=== PATIENT | female | born 1980 | race Caucasian/White ===

== ENCOUNTER 2019-05-15 15:20 | Emergency (ER) | payer OTHER ==
--- NOTE | 2019-05-15 16:22 | RAD REPORT ---
EXAM DESCRIPTION: RAD - Ankle Left 3 View -05/15/2019 4:08 pm CLINICAL HISTORY: Left ankle pain FINDINGS: No acute fracture or dislocation is seen. Lateral soft tissue swelling. Plate and screws affix old fibular fracture
--- NOTE | 2019-05-15 16:24 | RAD REPORT ---
EXAM DESCRIPTION: RAD - Knee Right 3 View - 05/15/2019 4:08 pm CLINICAL HISTORY: Right knee pain FINDINGS: No fracture or dislocation is seen. Mild medial joint space narrowing
--- NOTE | 2019-05-15 16:41 | EDPHYS ---
Physician Documentation [facility] Name: Milvia Joseph Age: 38 yrs Sex: Female : 1980 Arrival Date: 05/15/2019 Time: 15:23 Bed 19 Private MD: BLANKA Physician Barry Carranza HPI: 05/15 15:50 This 38 yrs old Female presents to ER via Ambulatory with complaints of cp Ankle/Leg Pain. 15:50 The patient presents with an injury, pain. The complaints affect the left lateral cp ankle, medial aspect of right knee and right knee. Context: resulted from the patient falling, a mis-step, the patient can fully bear weight, the patient is able to ambulate, with mild difficulty, Problem is a result from a previous injury: Yes. left ankle fracture that required surgery with hardware placement. Onset: The symptoms/episode began/occurred last week. Associated signs and symptoms: Pertinent positives: swelling, weakness, Pertinent negatives calf tenderness, numbness. Patient reports she went to hospital in [facility] after fall and had xrays taken. 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 - Coronavirus screen:: The patient has NOT traveled to [place] in the past 14 days. - Social history:: Smoking status: Patient reports the use of cigarette tobacco products, smokes one-half pack cigarettes per day. - Ebola Screening: : Patient denies travel to an Ebola-affected area in the 21 days before illness onset. ROS: 15:55 MS/extremity: Positive for pain, of the right knee and left ankle, Negative for cp decreased range of motion, deformity, paresthesias. 15:55 Constitutional: Negative for body aches, chills, fever. cp 15:55 Respiratory: Negative for cough, shortness of breath. 15:55 Abdomen/GI: Negative for abdominal pain. 15:55 Neuro: Negative for headache. 15:55 All other systems are negative. Exam: 16:05 Constitutional: The patient appears in no acute distress, alert, awake, non-toxic, well cp developed, well nourished. 16:05 Head/Face: Normocephalic, atraumatic. cp 16:05 Cardiovascular: Rate: normal. 16:05 Respiratory: the patient does not display signs of respiratory distress, Respirations: normal. 16:05 Musculoskeletal/extremity: Pulses: noted to be 2+ in the right dorsalis pedis artery and left dorsalis pedis artery, Sensation intact. Joints: All joints are normal except the right knee displays painful range of motion, tenderness, the left ankle displays painful range of motion, swelling, tenderness, Weight bearing: able to fully bear weight. 16:05 Skin: cellulitis, is not appreciated, no rash present. Vital Signs: 15:31 BP 127 / 79; Pulse 86; Resp 18; Temp 97.7; Pulse Ox 98% on R/A; Weight 73.03 kg (R); aj1 Height 5 ft. 5 in. (165.10 cm) (R); Pain 7/10; 15:31 Body Mass Index 26.79 (73.03 kg, 165.10 cm) aj1 Procedures: 17:00 Splinting: Splint applied to left ankle using Air Cast, applied by nurse. Examined by cp me, post splint application: neurovascular intact, Patient tolerated well. MDM: 15:34 Patient medically screened. cp 16:40 Data reviewed: vital signs, nurses notes, radiologic studies, plain films. cp 16:40 Differential diagnosis: dislocation, closed fracture, sprain, strain. Test cp interpretation: by ED physician or midlevel provider: plain radiologic studies, xrays of left ankle negative for fracture and xrays of right knee negative for fracture. Counseling: I had a detailed discussion with the patient and/or guardian regarding: the historical points, exam findings, and any diagnostic results supporting the discharge/admit diagnosis, radiology results, the need for outpatient follow up, a orthopedic surgeon, to return to the emergency department if symptoms worsen or persist or if there are any questions or concerns that arise at home. 05/15 15:45 Order name: XRAY Knee RIGHT 3 view cp 05/15 15:45 Order name: XRAY Ankle LEFT 3 view cp 05/15 16:28 Order name: RAD EDMS 05/15 16:28 Order name: RAD EDMS 05/15 16:39 Order name: Aircast Ankle Splint; Complete Time: 18:19 cp Administered Medications: No medications were administered Disposition: 17:05 Chart complete. cp Disposition: 05/15/19 16:40 Discharged to Home. Impression: Pain in left ankle and joints of left foot, Pain in right knee. - Condition is Stable. - Discharge Instructions: Elastic Bandage and RICE, Knee Pain, Ankle Pain. - Prescriptions for Diclofenac Sodium 75 mg Oral Tablet, Delayed Release (E.C.) - take 1 tablet by ORAL route 2 times per day As needed; 20 tablet. - Medication Reconciliation Form, Thank You Letter, Antibiotic Education, Prescription Opioid Use form. - Follow up: David Snyder MD; When: 1 week; Reason: Recheck today's complaints. - Problem is new. - Symptoms have improved. Addendum: 05/18/2019 07:54 Co-signature as Attending Physician, Barry Carranza MD I agree with the assessment and c hernandez plan of care. Signatures: Dispatcher [employer] [facility] Domi Cullen RN RN aj1 Barry Carranza MD MD cha Page, Corey, PA PA Kala Garcia RN RN Corrections: (The following items were deleted from the chart) 05/15 17:03 16:40 05/15/2019 16:40 Discharged to Home. Impression: Pain in left ankle and joints of ah left foot; Pain in right knee. Condition is Stable. Forms are Medication Reconciliation Form, Thank You Letter, Antibiotic Education, Prescription Opioid Use. Follow up: Dr. David Snyder; When: 1 week; Reason: Recheck today's complaints. Problem is new. Symptoms have improved. cp
--- NOTE | 2019-05-15 16:41 | ER ---
Nurse's Notes [facility] Name: Milvia Joseph Age: 38 yrs Sex: Female : 1980 Arrival Date: 05/15/2019 Time: 15:23 Bed 19 Private MD: Diagnosis: Pain in left ankle and joints of left foot;Pain in right knee Presentation: 05/15 15:25 Presenting complaint: Patient states: "I had surgery on my left ankle, I rolled both of aj1 them a year ago, and I ended up having to go in for surgery a week later, they had to put a plate and 7 screws in it. I usually wear a brace on the right one because I roll it all the time. On the I rolled my left ankle and I went to the hospital at [place] and I sprained my knee too and then I did it again a couple days ago and it hasn't gotten any better." Patient reports pain to left ankle and right knee. Transition of care: patient was not received from another setting of care. Onset of symptoms was 2019. Risk Assessment: Do you want to hurt yourself or someone else? Patient reports no desire to harm self or others. Initial Sepsis Screen: Does the patient meet any 2 criteria? No. Patient's initial sepsis screen is negative. Does the patient have a suspected source of infection? No. Patient's initial sepsis screen is negative. Care prior to arrival: None. 15:25 Method Of Arrival: Ambulatory aj 15:25 Acuity: TIMOTHY 4 aj1 Triage Assessment: 15:31 General: Appears in no apparent distress. uncomfortable, Behavior is calm, cooperative, aj1 appropriate for age. Pain: Complains of pain in right knee and left lateral ankle. Neuro: Level of Consciousness is awake, alert, obeys commands. Cardiovascular: Patient's skin is warm and dry. Respiratory: Airway is patent Respiratory effort is even, unlabored, Respiratory pattern is regular, symmetrical. 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 - Coronavirus screen:: The patient has NOT traveled to [place] in the past 14 days. - Social history:: Smoking status: Patient reports the use of cigarette tobacco products, smokes one-half pack cigarettes per day. - Ebola Screening: : Patient denies travel to an Ebola-affected area in the 21 days before illness onset. Screenin:50 Abuse screen: Denies threats or abuse. Denies injuries from another. Nutritional sv screening: No deficits noted. Tuberculosis screening: No symptoms or risk factors identified. Fall Risk None identified. Assessment: 15:51 General: Appears in no apparent distress. Behavior is calm, cooperative. Pain: ah Complains of pain in left lateral ankle and lateral aspect of left foot and right knee Pain does not radiate. Pain currently is 6 out of 10 on a pain scale. Quality of pain is described as throbbing, Pain began 04/28 Is intermittent, Alleviated by rest, cold application, Aggravated by repositioning, weight bearing. Neuro: Level of Consciousness is awake, alert, Oriented to person, place, time, situation. Cardiovascular: Heart tones S1 S2 Capillary refill < 3 seconds. Respiratory: Airway is patent Respiratory effort is even, unlabored, Respiratory pattern is regular. GI: Abdomen is non-distended, Bowel sounds present X 4 quads. : No signs and/or symptoms were reported regarding the genitourinary system. EENT: No signs and/or symptoms were reported regarding the EENT system. Derm: Skin is intact, is healthy with good turgor. Musculoskeletal: Reports pain in left ankle and right knee. Injury Description: Pt states that she turned her L ankle and her right knee gave out on 04/28. 16:55 Reassessment: Patient appears in no apparent distress at this time. Patient and/or ah family updated on plan of care and expected duration. Pain level reassessed. Patient is alert, oriented x 3, equal unlabored respirations, skin warm/dry/pink. Patient states feeling better. Vital Signs: 15:31 BP 127 / 79; Pulse 86; Resp 18; Temp 97.7; Pulse Ox 98% on R/A; Weight 73.03 kg (R); aj1 Height 5 ft. 5 in. (165.10 cm) (R); Pain 7/10; 15:31 Body Mass Index 26.79 (73.03 kg, 165.10 cm) aj1 ED Course: 15:23 Patient arrived in ED. rg4 15:29 Triage completed. aj1 15:31 Arm band placed on Patient placed in an exam room. aj1 15:33 Barry Fragoso PA is PHCP. cp 15:33 Barry Carranza MD is Attending Physician. cp 15:40 Kala Garcia, RN is Primary Nurse. 15:50 Patient has correct armband on for positive identification. Placed in gown. Bed in low sv position. Call light in reach. 15:59 XRAY Ankle LEFT 3 view Sent. sv 15:59 XRAY Knee RIGHT 3 view Sent. sv 16:00 X-ray(s) taken. 16:21 Awaiting radiology results. sv 16:39 David Snyder MD is Referral Physician. cp 16:55 No provider procedures requiring assistance completed. Patient did not have IV access ah during this emergency room visit. 16:59 Air stirrup applied to left ankle. Administered Medications: No medications were administered Outcome: 16:40 Discharge ordered by MD. cp 16:55 Discharged to home ambulatory. 16:55 Condition: good 16:55 Discharge instructions given to patient, family, Instructed on discharge instructions, follow up and referral plans. Demonstrated understanding of instructions, follow-up care, medications, Prescriptions given X 1. 17:03 Patient left the ED. Signatures: Domi Cullen RN RN aj1 Makenna Chairez RN RN Barry Fragoso PA PA cp Garcia, Rubi rg4 Kala Garcia RN RN
== END 2019-05-15 17:03 | disposition home or self-care (01) ==
LOC: ER 15:20
DX: M25.572 Pain in left ankle and joints of left foot (principal); M25.561 Pain in right knee; F41.8 Other specified anxiety disorders; I10 Essential (primary) hypertension
CPT/HCPCS: 99283

== ENCOUNTER 2019-06-05 10:30 | Emergency (ER) | payer BC, OTHER ==
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
[2019-06-05] MEDS ORDERED: IPRATROPIUM BROM 0.5MG/2.5ML ONE (11:23)
[2019-06-05] MEDS ORDERED: HYDROCODONE/CHLORPHEN 5 ML/OSYR ONE (11:23)
[2019-06-05] MEDS ORDERED: LEVALBUTEROL 1.25 MG/3 ML NEB ONE (11:23)
[2019-06-05] MEDS ORDERED: AZITHROMYCIN 250 MG TAB ONE (11:23)
[2019-06-05] MEDS ORDERED: dexAMETHasone 4 MG TAB ONE (11:24)
--- NOTE | 2019-06-05 11:49 | RAD REPORT ---
EXAM DESCRIPTION: RAD - Chest Single View - 06/05/2019 11:31 am CLINICAL HISTORY: COUGH Chest pain. COMPARISON: No comparisons FINDINGS: Portable technique limits examination quality. The lungs are grossly clear. The heart is normal in size. No displaced fractures. IMPRESSION: No acute intrathoracic process suspected.
--- NOTE | 2019-06-05 11:50 | EDPHYS ---
Physician Documentation [facility] Name: Milvia Joseph Age: 39 yrs Sex: Female : 1980 Arrival Date: 06/05/2019 Time: 10:30 Bed 16 Private MD: ED Physician Barry Carranza HPI: 06/04 11:12 This 39 yrs old Female presents to ER via Ambulatory with complaints of isabel Cough, Fever, Sinus Congestion. 11:12 The patient or guardian reports airway noise, cough, difficulty breathing. Onset: The isabel symptoms/episode began/occurred 3 day(s) ago. Severity of symptoms: At their worst the symptoms were mild, in the emergency department the symptoms are unchanged. Modifying factors: The symptoms are alleviated by nothing, the symptoms are aggravated by nothing. The patient has not experienced similar symptoms in the past. Historical: - Allergies: 10:41 No Known Allergies; aa5 - Home Meds: 10:41 Metoprolol Tartrate Oral [Active]; Lisinopril Oral [Active]; Klonopin Oral [Active]; aa5 Lexapro Oral [Active]; - PMHx: 10:41 Anxiety; Depression; Hypertension; aa5 - PSHx: 10:41 D \T\ C; Tubal ligation; Fibula; aa5 - Immunization history:: Flu vaccine is not up to date. - Social history:: Smoking status: Patient reports the use of cigarette tobacco products, smokes one pack cigarettes per day. - Family history:: not pertinent. ROS: 11:12 Constitutional: Negative for fever, chills, and weight loss, Eyes: Negative for injury, isabel pain, redness, and discharge, ENT: Negative for injury, pain, and discharge, Neck: Negative for injury, pain, and swelling, Cardiovascular: Negative for chest pain, palpitations, and edema, Abdomen/GI: Negative for abdominal pain, nausea, vomiting, diarrhea, and constipation, Back: Negative for injury and pain, : Negative for injury, bleeding, discharge, and swelling, MS/Extremity: Negative for injury and deformity, Skin: Negative for injury, rash, and discoloration, Neuro: Negative for headache, weakness, numbness, tingling, and seizure, Psych: Negative for depression, anxiety, suicide ideation, homicidal ideation, and hallucinations, Allergy/Immunology: Negative for hives, rash, and allergies, Endocrine: Negative for neck swelling, polydipsia, polyuria, polyphagia, and marked weight changes, Hematologic/Lymphatic: Negative for swollen nodes, abnormal bleeding, and unusual bruising. 11:12 Respiratory: Positive for cough, shortness of breath, at rest. Exam: 11:12 Constitutional: This is a well developed, well nourished patient who is awake, alert, isabel and in no acute distress. Head/Face: Normocephalic, atraumatic. Eyes: Pupils equal round and reactive to light, extra-ocular motions intact. Lids and lashes normal. Conjunctiva and sclera are non-icteric and not injected. Cornea within normal limits. Periorbital areas with no swelling, redness, or edema. ENT: Nares patent. No nasal discharge, no septal abnormalities noted. Tympanic membranes are normal and external auditory canals are clear. Oropharynx with no redness, swelling, or masses, exudates, or evidence of obstruction, uvula midline. Mucous membranes moist. Neck: Trachea midline, no thyromegaly or masses palpated, and no cervical lymphadenopathy. Supple, full range of motion without nuchal rigidity, or vertebral point tenderness. No Meningismus. Chest/axilla: Normal chest wall appearance and motion. Nontender with no deformity. No lesions are appreciated. Cardiovascular: Regular rate and rhythm with a normal S1 and S2. No gallops, murmurs, or rubs. Normal PMI, no JVD. No pulse deficits. Abdomen/GI: Soft, non-tender, with normal bowel sounds. No distension or tympany. No guarding or rebound. No evidence of tenderness throughout. Back: No spinal tenderness. No costovertebral tenderness. Full range of motion. Skin: Warm, dry with normal turgor. Normal color with no rashes, no lesions, and no evidence of cellulitis. MS/ Extremity: Pulses equal, no cyanosis. Neurovascular intact. Full, normal range of motion. Neuro: Awake and alert, GCS 15, oriented to person, place, time, and situation. Cranial nerves II-XII grossly intact. Motor strength 5/5 in all extremities. Sensory grossly intact. Cerebellar exam normal. Normal gait. Psych: Awake, alert, with orientation to person, place and time. Behavior, mood, and affect are within normal limits. 11:12 Respiratory: the patient does not display signs of respiratory distress, Respirations: normal, no acute changes, Breath sounds: decreased breath sounds, rhonchi, that are mild, are scattered, Respiratory rate: 18 11:49 Musculoskeletal/extremity: DVT Exam: No signs of deep vein thrombosis. no pain, no isabel swelling, no tenderness, negative Homans' sign noted on exam, no appreciated bluish discoloration, no erythema, no increased warmth. Vital Signs: 10:31 BP 127 / 81; Pulse 60; Resp 18 S; Temp 98.1(O); Pulse Ox 98% on R/A; Weight 73.03 kg aa5 (R); Height 5 ft. 5 in. (165.10 cm) (R); Pain 0/10; 11:46 BP 134 / 81; Pulse 49; Resp 16; Pulse Ox 100% ; bp 12:22 BP 137 / 79; Pulse 55; Resp 16; Temp 98; Pulse Ox 100% ; bp 10:31 Body Mass Index 26.79 (73.03 kg, 165.10 cm) aa5 MDM: 10:46 Patient medically screened. [facility] 11:13 Data reviewed: vital signs, nurses notes, lab test result(s), Flu: radiologic studies, [facility] plain films. 06/04 10:47 Order name: Influenza Screen (a \T\ B) [facility] 06/04 12:19 Order name: Influenza Screen (A EDMS 06/04 10:47 Order name: Chest Single View XRAY [facility] 06/04 11:50 Order name: RAD; Complete Time: 12:03 EDVA Administered Medications: 11:20 Drug: Zithromax 500 mg Route: PO; bp 12:00 Follow up: Response: No adverse reaction bp 11:20 Drug: Decadron 4 mg Route: PO; bp 12:00 Follow up: Response: No adverse reaction bp 11:20 Drug: Xopenex 1.25 mg Route: Inhalation; bp 11:20 Drug: AtroVENT Aerosol 0.5 mg Route: Inhalation; bp 11:20 Drug: Tussionex Pennkinetic ER 5 ml Route: PO; bp 12:00 Follow up: Response: Marked relief of symptoms bp 12:00 Drug: Rocephin (cefTRIAXone) 1 grams Route: IM; Site: left gluteus; bp 12:01 Follow up: Response: No adverse reaction bp Disposition: 06/05/19 11:48 Discharged to Home. Impression: Cough, Bronchitis, not specified as acute or chronic, Tobacco abuse counseling, Tobacco use. - Condition is Stable. - Discharge Instructions: Acute Bronchitis, Adult, Upper Respiratory Infection, Adult, Cool Mist Vaporizer, Upper Respiratory Infection, Adult, Rzad-[id number], Tobacco Use Disorder, Cough, Adult, [id number]-[id number], Cough, Adult. - Prescriptions for Bromfed DM 2- 30-10 mg/5 mL Oral syrup - take 10 milliliter by ORAL route every 6 hours; 160 milliliter. dexamethasone 2 mg Oral tablet - take 1 tablet by ORAL route 2 times per day; 10 tablet. Albuterol Sulfate 90 mcg/actuation - inhale 1-2 puff by INHALATION route every 4-6 hours; 1 Inhaler. Zithromax 500 mg Oral Tablet - take 1 tablet by ORAL route once daily for 5 days; 5 tablet. - Medication Reconciliation Form, Thank You Letter, Antibiotic Education, Prescription Opioid Use form. - Follow up: Private Physician; When: 2 - 3 days; Reason: Recheck today's complaints, Continuance of care, Re-evaluation by your physician. Follow up: Roverto Islas; When: 2 - 3 days; Reason: Recheck today's complaints, Continuance of care, Re-evaluation by your physician. - Problem is new. - Symptoms have improved. Signatures: Dispatcher [employer] [facility] Barry Carranza MD MD cha Calderon, Audri, DAVID RN aa5 Shlomo Rosas RN RN bp Corrections: (The following items were deleted from the chart) 12:26 11:48 06/05/2019 11:48 Discharged to Home. Impression: Cough; Bronchitis, not specified bp as acute or chronic; Tobacco abuse counseling; Tobacco use. Condition is Stable. Discharge Instructions: Acute Bronchitis, Adult, Upper Respiratory Infection, Adult, Cool Mist Vaporizer, Upper Respiratory Infection, Adult, Levk-je-Lbbr, Tobacco Use Disorder, Cough, Adult, Cvol-cb-[id number], Cough, Adult. Prescriptions for Bromfed DM 2-30-10 mg/5 mL Oral syrup - take 10 milliliter by ORAL route every 6 hours; 160 milliliter, dexamethasone 2 mg Oral tablet - take 1 tablet by ORAL route 2 times per day; 10 tablet, Albuterol Sulfate 90 mcg/actuation - inhale 1-2 puff by INHALATION route every 4-6 hours; 1 Inhaler, Zithromax 500 mg Oral Tablet - take 1 tablet by ORAL route once daily for 5 days; 5 tablet. and Forms are Medication Reconciliation Form, Thank You Letter, Antibiotic Education, Prescription Opioid Use. Follow up: Private Physician; When: 2 - 3 days; Reason: Recheck today's complaints, Continuance of care, Re-evaluation by your physician. Follow up: Roverto Islas; When: 2 - 3 days; Reason: Recheck today's complaints, Continuance of care, Re-evaluation by your physician. Problem is new. Symptoms have improved. isabel
--- NOTE | 2019-06-05 11:50 | ER ---
Nurse's Notes [facility] Name: Milvia Joseph Age: 39 yrs Sex: Female : 1980 Arrival Date: 06/05/2019 Time: 10:30 Bed 16 Private MD: Diagnosis: Cough;Bronchitis, not specified as acute or chronic;Tobacco abuse counseling;Tobacco use Presentation: 06/04 10:31 Chief complaint: Patient states: cough, chills, congestion and pain to chest only with aa5 cough that began 1 week ago. 10:31 Coronavirus screen: The patient has NOT traveled to a country currently being monitored aa5 by the [facility] within the last 14 days. The patient has NOT had contact with any known and/or suspected case of coronavirus. Ebola Screen: Patient negative for fever greater than or equal to 101.5 degrees Fahrenheit, and additional compatible Ebola Virus Disease symptoms. Initial Sepsis Screen: Does the patient meet any 2 criteria? No. Patient's initial sepsis screen is negative. Does the patient have a suspected source of infection? No. Patient's initial sepsis screen is negative. Risk Assessment: Do you want to hurt yourself or someone else? Patient reports no desire to harm self or others. 10:31 Method Of Arrival: Ambulatory aa5 10:31 Acuity: TIMOTHY 3 aa5 Triage Assessment: 10:35 General: Appears in no apparent distress. comfortable, Behavior is calm, cooperative, bp appropriate for age. Pain: Denies pain. EENT: Reports nasal congestion. Neuro: No deficits noted. Cardiovascular: Rhythm is sinus rhythm. Respiratory: Reports cough that is. GI: No signs and/or symptoms were reported involving the gastrointestinal system. : No signs and/or symptoms were reported regarding the genitourinary system. Derm: No deficits noted. Musculoskeletal: No deficits noted. Historical: - Allergies: 10:41 No Known Allergies; aa5 - Home Meds: 10:41 Metoprolol Tartrate Oral [Active]; Lisinopril Oral [Active]; Klonopin Oral [Active]; aa5 Lexapro Oral [Active]; - PMHx: 10:41 Anxiety; Depression; Hypertension; aa5 - PSHx: 10:41 D \T\ C; Tubal ligation; Fibula; aa5 - Immunization history:: Flu vaccine is not up to date. - Social history:: Smoking status: Patient reports the use of cigarette tobacco products, smokes one pack cigarettes per day. - Family history:: not pertinent. Screenin:49 Abuse screen: Denies threats or abuse. Denies injuries from another. Nutritional bp screening: No deficits noted. Tuberculosis screening: No symptoms or risk factors identified. Fall Risk None identified. Assessment: 10:35 General: SEE TRIAGE NOTE. bp 11:08 Reassessment: XRAY AT B/S. ALL CURRENT ORDERS COMPLETE. bp 12:00 Reassessment: D/C ON HOLD FOR SHOT TIME. bp 12:22 Reassessment: PT D/C HOME AMBULATORY WITH FAMILY, DX WITH ACUTE BRONCHITIS. bp Vital Signs: 10:31 BP 127 / 81; Pulse 60; Resp 18 S; Temp 98.1(O); Pulse Ox 98% on R/A; Weight 73.03 kg aa5 (R); Height 5 ft. 5 in. (165.10 cm) (R); Pain 0/10; 11:46 BP 134 / 81; Pulse 49; Resp 16; Pulse Ox 100% ; bp 12:22 BP 137 / 79; Pulse 55; Resp 16; Temp 98; Pulse Ox 100% ; bp 10:31 Body Mass Index 26.79 (73.03 kg, 165.10 cm) aa5 ED Course: 10:30 Patient arrived in ED. ag5 10:38 Arm band placed on Patient placed in an exam room, on a stretcher. aa5 10:40 Triage completed. aa5 10:44 Shlomo Rosas, DAVID is Primary Nurse. bp 10:46 Barry Carranza MD is Attending Physician. isabel 10:49 Patient has correct armband on for positive identification. Bed in low position. Call bp light in reach. Side rails up X2. 11:27 Influenza Screen (a \T\ B) Sent. bp 11:48 Roverto Islas MD is Referral Physician. isabel 12:22 No provider procedures requiring assistance completed. Patient did not have IV access bp during this emergency room visit. Administered Medications: 11:20 Drug: Zithromax 500 mg Route: PO; bp 12:00 Follow up: Response: No adverse reaction bp 11:20 Drug: Decadron 4 mg Route: PO; bp 12:00 Follow up: Response: No adverse reaction bp 11:20 Drug: Xopenex 1.25 mg Route: Inhalation; bp 11:20 Drug: AtroVENT Aerosol 0.5 mg Route: Inhalation; bp 11:20 Drug: Tussionex Pennkinetic ER 5 ml Route: PO; bp 12:00 Follow up: Response: Marked relief of symptoms bp 12:00 Drug: Rocephin (cefTRIAXone) 1 grams Route: IM; Site: left gluteus; bp 12:01 Follow up: Response: No adverse reaction bp Outcome: 11:48 Discharge ordered by . isabel 12:25 Discharged to home ambulatory, with family. bp 12:25 Condition: stable 12:25 Discharge instructions given to patient, Instructed on discharge instructions, follow up and referral plans. medication usage, Demonstrated understanding of instructions, follow-up care, medications, Prescriptions given X 4. 12:26 Patient left the ED. bp Signatures: Barry Carranza MD MD cha Calderon, Audri, RN RN aa5 Shlomo Rosas RN RN Davon Dang ag5
[2019-06-05] MEDS ORDERED: CEFTRIAXONE 1000 MG/VIAL ONE (11:58)
[2019-06-05] MEDS ORDERED: WATER FOR INJ,STERILE 10 ML ONE (11:58)
[2019-06-05 12:34] VITALS: O2SAT 100
[2019-06-05 12:35] VITALS: BP 137/79; TEMP 98
== END 2019-06-05 12:26 | disposition home or self-care (01) ==
LOC: ER 10:30
DX: J40 Bronchitis, not specified as acute or chronic (principal); R05 Cough; Z72.0 Tobacco use; Z71.6 Tobacco abuse counseling; I10 Essential (primary) hypertension; F41.8 Other specified anxiety disorders
CPT/HCPCS: 71045; 87804; 96372; 99284; J8540